=== PATIENT | female | born 1955 | race Caucasian/White ===

== ENCOUNTER 2017-10-10 09:57 | Inpatient (IN) | payer OTHER ==
[~2017-10-10] VITALS: Ht 157.5 cm; Wt 53.1 kg
[~2017-10-10 09:57] MED LIST: ALBU2.5V14 NEB; ASPI-630 PO; CALC600T4 PO; CHOL500016 PO; IBAN3DIS2 IV; TIOT18CA IH
[2017-10-10 13:30] VITALS: BP 170/82
[2017-10-10 13:32] LABS: BASO % 0 % (0-3); EOS # 0.2 x10^3/uL (0.0-0.7); EOS % 2 % (0-3); HEMATOCRIT 39.4 % (36.0-47.0); HEMOGLOBIN 13.4 g/dL (12.0-15.5); LYMPH # 2.5 x10^3/uL (1.0-4.8); LYMPH % 25 % (24-48); MEAN CORPUSCULAR HEMOGLOBIN 32 pg (25-35); MEAN CORPUSCULAR HGB CONC 34 g/dL (31-37); MEAN CORPUSCULAR VOLUME 94 fL (79-100); MONO # 0.9 x10^3/uL (0.0-1.1); MONO % 9 % (0-9); NEUT # 6.2 x10^3uL (1.8-7.7); NEUT % 63 % (31-73); PLATELET COUNT 289 x10^3/uL (140-400); RED BLOOD COUNT 4.19 x10^6/uL (3.50-5.40); RED CELL DISTRIBUTION WIDTH 13.1 % (11.5-14.5); WHITE BLOOD COUNT 9.9 x10^3/uL (4.0-11.0)
[2017-10-10 13:44] LABS: ALBUMIN 3.3 g/dL (3.4-5.0); ALBUMIN/GLOBULIN RATIO 1.1 (1.0-1.7); CALCIUM 8.4 mg/dL (8.5-10.1); CREATININE 0.8 mg/dL (0.6-1.0); GFR 72.2; POTASSIUM 3.6 mmol/L (3.5-5.1); TOTAL BILIRUBIN 0.5 mg/dL (0.2-1.0); TOTAL PROTEIN 6.2 g/dL (6.4-8.2)
[2017-10-10] MEDS ORDERED: IOHEXOL 300 MG/ML 75 ML VIAL. IV ONE ×2 (13:45→17:15)
[2017-10-10] MEDS ORDERED: CALC-495 PO (14:43)
[2017-10-10] MEDS ORDERED: FEXO1TAB31 PO (14:47)
[2017-10-10] MEDS ORDERED: BUPR100T8 PO (14:47)
[2017-10-10] MEDS ORDERED: BUDE10.2 IH (14:47)
[2017-10-10] MEDS ORDERED: AZEL23SP NS (14:47)
[2017-10-10] MEDS ORDERED: FISH12002 PO (14:47)
[2017-10-10] MEDS ORDERED: ASCO500T2 PO (14:47)
[2017-10-10] MEDS: methylPREDNISolone SOD SUCC PF 125 MG/2 ML VIAL. IV SCH ×2 (14:56→22:45)
[2017-10-10] MEDS: IPRATRPIUM/ALBUTEROL 0.5/2.5MG 3 ML NEBU. NEB SCH ×2 (16:00→20:20)
[2017-10-10 16:20] VITALS: BP 163/89
[2017-10-10 16:55] LABS: BGAS PH 7.47 (7.35-7.45)
--- NOTE | 2017-10-10 18:53 | RAD ---
CT chest with contrast: Reason for examination: COPD exacerbation. Helical images were obtained through the chest with intravenous administration of 74 cc of nonionic contrast. Reconstruction was performed in sagittal and coronal planes. Exposure: One or more of the following individualized dose reduction techniques were utilized for this examination: 1. Automated exposure control 2. Adjustment of the mA and/or kV according to patient size 3. Use of iterative reconstruction technique. No abnormality seen at the thyroid gland. The trachea and mainstem bronchi show no intraluminal lesions. No abnormality seen at the esophagus. The thoracic aorta shows no aneurysmal dilatation or dissection. The heart size is normal with no pericardial effusion. There is some calcifications in the subcarinal mediastinum and at the left hilum. No gross pulmonary embolus is evident. The lung chilel are hyperaerated and there are emphysematous changes bilaterally which are predominantly apical. No pulmonary nodules, infiltrates or pleural effusions are seen. No abnormality seen at the visualized portion of the liver. There are splenic granuloma. No abnormalities are seen at the adrenal glands or visualized portion of the left kidney and pancreas. IMPRESSION: Calcifications in the subcarinal mediastinum and at the left hilum. Hyperaerated lung chilel with bilateral emphysematous changes which are predominantly apical. No acute infiltrates, nodules or pleural effusions seen in the chest. Electronically signed by: Payal Mendoza MD (10/10/2017 6:49 PM) [place] [id number]
[2017-10-10 20:44] VITALS: BP 144/83
[2017-10-10] MEDS: DOCUSATE SODIUM 100 MG CAPSULE PO PRN (22:45)
[2017-10-10 23:21] VITALS: BP 143/78
[2017-10-11] MEDS: IPRATRPIUM/ALBUTEROL 0.5/2.5MG 3 ML NEBU. NEB SCH ×4 (05:53→20:16)
[2017-10-11] MEDS: methylPREDNISolone SOD SUCC PF 125 MG/2 ML VIAL. IV SCH (06:00)
[2017-10-11 06:39] VITALS: BP 129/72
[2017-10-11] MEDS ORDERED: NON FORMULARY ITEM (Tiotropium Bromide (Spiriva) 1 CAP) IH SCH (09:00)
[2017-10-11] MEDS ORDERED: CETIRIZINE HCL 10 MG TABLET PO SCH (09:00)
[2017-10-11] MEDS ORDERED: AZELASTINE NS SCH (09:00)
[2017-10-11] MEDS ORDERED: IBANDRONATE SODIUM IV SCH (09:00)
[2017-10-11] MEDS ORDERED: NON FORMULARY ITEM (Budesonide/Formoterol Fumarate (Symbicort 160-4.5 Mcg Inhaler) 2 PUFF) IH SCH (09:00)
[2017-10-11] MEDS ORDERED: DISP SYRIN IV SCH (09:00)
[2017-10-11] MEDS ORDERED: FLUTICASONE NS SCH (09:00)
[2017-10-11] MEDS: PSEUDOEPHEDRINE ER 120 MG TABLET.ER. PO SCH ×2 (10:00→20:19)
[2017-10-11] MEDS: ASPIRIN 81 MG TAB.CHEW PO SCH (10:00)
[2017-10-11] MEDS: ASCORBIC ACID 500 MG TABLET PO SCH (10:00)
[2017-10-11] MEDS: buPROPion SR 100 MG TABLET.SA. PO SCH (10:00)
[2017-10-11] MEDS: DOCUSATE SODIUM 100 MG CAPSULE PO PRN (10:02)
[2017-10-11 10:47] VITALS: BP 154/81
[2017-10-11] MEDS ORDERED: IPRATRPIUM/ALBUTEROL 0.5/2.5MG 3 ML NEBU. NEB SCH (12:00)
[2017-10-11] MEDS: methylPREDNISolone SOD SUCC PF 40 MG/ML VIAL. IV SCH ×2 (14:19→21:51)
[2017-10-11 15:31] VITALS: BP 130/77
[2017-10-11] MEDS: CALCIUM CARB/VIT D3 500/200 TABLET PO SCH (17:04)
[2017-10-11] MEDS: BUDESONIDE 0.5 MG/2 ML NEBU NEB SCH (20:16)
[2017-10-11] MEDS: CETIRIZINE HCL 10 MG TABLET PO SCH (20:18)
[2017-10-11] MEDS: OMEGA-3 FATTY ACIDS/FISH OIL 1,000 MG CAPSULE. PO SCH (20:18)
[2017-10-11] MEDS: LACTOBACILLUS RHAMNOSUS GG 1 CAPSULE. PO SCH (20:18)
[2017-10-11] MEDS: FLUTICASONE 50MCG/NASAL SPRAY 16GM BOTTLE. NS SCH (20:19)
[2017-10-11] MEDS: AZELASTINE NASAL SPRAY 30ML BOTTLE. NS SCH (20:19)
[2017-10-11 20:48] VITALS: BP 128/80
[2017-10-11] MEDS ORDERED: ALBUTEROL SULFATE 2.5 MG/3 ML NEBU. NEB SCH (21:00)
[2017-10-11] MEDS ORDERED: NON FORMULARY ITEM (Albuterol Sulfate (Albuterol Sulfate Conc Neb Soln) 1 VIAL) NEB SCH (21:00)
--- NOTE | 2017-10-11 21:32 | PN ---
DATE: 10/11/2017 SUBJECTIVE: The patient with acute exacerbation of COPD, admitted yesterday. The patient resting fairly comfortably, says she is breathing somewhat better. However, the patient's CT showed bilateral emphysematous changes, no acute infiltrative process noted, but the patient is having difficulty breathing. PHYSICAL EXAMINATION: VITAL SIGNS: Blood pressure 150/80, respiration 20, pulse 90-100, afebrile, oxygen saturation below, she has been under 88-89 percentile. We will continue with IV antibiotic therapy, aggressive pulmonary toilet, Solu-Medrol, make further evaluation on her as indicated otherwise. LUNGS: Diminished throughout. CARDIOVASCULAR: Regular sinus rhythm. ABDOMEN: Soft, nontender. IMPRESSION: Acute exacerbation of chronic obstructive pulmonary disease. Otherwise, the patient is resting fairly comfortably, making fairly good progress, but her lungs were diminished throughout and still shows decreased breath sounds throughout with some rhonchi noted. IMPRESSION: Acute exacerbation of chronic obstructive pulmonary disease, acute bronchitis with acute respiratory failure on top of her acute exacerbation of chronic obstructive pulmonary disease. PLAN: We will continue to monitor the patient accordingly, make further evaluation per those results. JASON CALHOUN MD DR: PATRICIA/lubna JOB#: [id number] / [id number]
[2017-10-12 00:06] VITALS: BP 129/75
[2017-10-12] MEDS: IPRATRPIUM/ALBUTEROL 0.5/2.5MG 3 ML NEBU. NEB SCH ×2 (05:40→09:38)
[2017-10-12] MEDS: methylPREDNISolone SOD SUCC PF 40 MG/ML VIAL. IV SCH (05:42)
[2017-10-12 05:44] VITALS: BP 129/82
[2017-10-12] MEDS: CALCIUM CARB/VIT D3 500/200 TABLET PO SCH (09:07)
[2017-10-12] MEDS: AZELASTINE NASAL SPRAY 30ML BOTTLE. NS SCH (09:07)
[2017-10-12] MEDS: OMEGA-3 FATTY ACIDS/FISH OIL 1,000 MG CAPSULE. PO SCH (09:07)
[2017-10-12] MEDS: LACTOBACILLUS RHAMNOSUS GG 1 CAPSULE. PO SCH (09:07)
[2017-10-12] MEDS: ASCORBIC ACID 500 MG TABLET PO SCH (09:08)
[2017-10-12] MEDS: buPROPion SR 100 MG TABLET.SA. PO SCH (09:08)
[2017-10-12] MEDS: CETIRIZINE HCL 10 MG TABLET PO SCH (09:08)
[2017-10-12] MEDS: PSEUDOEPHEDRINE ER 120 MG TABLET.ER. PO SCH (09:08)
[2017-10-12] MEDS: FLUTICASONE 50MCG/NASAL SPRAY 16GM BOTTLE. NS SCH (09:08)
[2017-10-12] MEDS: ASPIRIN 81 MG TAB.CHEW PO SCH (09:09)
[2017-10-12] MEDS: BUDESONIDE 0.5 MG/2 ML NEBU NEB SCH (09:39)
[2017-10-12] MEDS ORDERED: PRED-220 PO (10:01)
--- NOTE | 2017-10-12 20:25 | DS ---
DATE OF DISCHARGE: 10/12/2017 HOSPITAL COURSE: A 62-year-old female with acute exacerbation of chronic obstructive pulmonary disease with asthma. The patient was admitted to the hospital and placed on aggressive IV steroids, made fairly good progress. A CT scan showed hyperinflated lung chilel, emphysema. The patient made excellent progress during the rest of her hospitalization. There were no complications. PHYSICAL EXAMINATION: VITAL SIGNS: Blood pressure 130/80, respiratory rate 18, pulse 93, afebrile. GENERAL: The patient was alert and oriented x 3. LUNGS: Diminished throughout, poor movement of air. The patient made good progress during the rest of her hospitalization and she was discharged home for followup as an outpatient. IMPRESSION: Acute on top of chronic COPD and acute asthma. The patient will be discharged home and follow up accordingly as an outpatient. See MRAD. Continue breathing treatments, [id number] protein malnutrition. JSAON CALHOUN MD DR: PATRICIA/lubna JOB#: [id number] / [id number]
== END 2017-10-12 11:00 | disposition home or self-care (01) | DRG 189 ==
LOC: 1 SOUTH 12:38
PROVIDERS: ADMIT Family Medicine; ATTEND Family Medicine
DX: J96.00 Acute respiratory failure, unspecified whether with hypoxia or hypercapnia (principal); J44.1 Chronic obstructive pulmonary disease with (acute) exacerbation; J44.0 Chronic obstructive pulmonary disease with (acute) lower respiratory infection; J45.901 Unspecified asthma with (acute) exacerbation; E44.0 Moderate protein-calorie malnutrition; R65.10 Systemic inflammatory response syndrome (SIRS) of non-infectious origin without acute organ dysfunction; J20.9 Acute bronchitis, unspecified; J98.4 Other disorders of lung; Z68.21 Body mass index [BMI] 21.0-21.9, adult
CPT/HCPCS: 36415; 71260; 80053; 82803; 85025; 87040; 94640; J1956; J2920; J2930; J7620; J7626; Q9967

== ENCOUNTER 2020-04-19 14:36 | Inpatient (IN) | payer MEDICARE ==
[~2020-04-19] VITALS: Ht 154.9 cm; Wt 62.2 kg
[~2020-04-19 14:36] MED LIST changes: +ASCO500T4 PO; +AZEL23SP NS; +BUDE10.2 IH; +BUPR100T8 PO; +CALC-495 PO; -CALC600T4 PO; +CALC600T6 PO; +FEXO1TAB31 PO; +FISH12002 PO; +PRED-220 PO
[2020-04-19 16:01] LABS: BASO # 0.1 x10^3/uL (0.0-0.2); BASO % 1 % (0-3); EOS % 0 % (0-3); HEMATOCRIT 43.9 % (36.0-47.0); LYMPH # 1.6 x10^3/uL (1.0-4.8); LYMPH % 14 % (24-48); MEAN CORPUSCULAR HEMOGLOBIN 31 pg (25-35); MEAN CORPUSCULAR HGB CONC 32 g/dL (31-37); MEAN CORPUSCULAR VOLUME 96 fL (79-100); MONO # 0.6 x10^3/uL (0.0-1.1); MONO % 5 % (0-9); NEUT # 9.1 x10^3uL (1.8-7.7); NEUT % 80 % (31-73); PLATELET COUNT 277 x10^3/uL (140-400); RED BLOOD COUNT 4.59 x10^6/uL (3.50-5.40); RED CELL DISTRIBUTION WIDTH 13.9 % (11.5-14.5); WHITE BLOOD COUNT 11.4 x10^3/uL (4.0-11.0)
[2020-04-19 16:13] LABS: ALBUMIN 3.8 g/dL (3.4-5.0); ALBUMIN/GLOBULIN RATIO 1.2 (1.0-1.7); CALCIUM 9.1 mg/dL (8.5-10.1); CREATININE 0.7 mg/dL (0.6-1.0); GFR 83.5; TOTAL BILIRUBIN 0.5 mg/dL (0.2-1.0); TOTAL PROTEIN 7.1 g/dL (6.4-8.2)
[2020-04-19] MEDS ORDERED: ACETAMINOPHEN 500 MG TABLET PO PRN ×2 (17:30→17:45)
[2020-04-19] MEDS ORDERED: ZOLPIDEM 5 MG TABLET. PO PRN (17:45)
[2020-04-19] MEDS ORDERED: LORazepam 0.5 MG TABLET PO PRN (17:45)
[2020-04-19] MEDS ORDERED: ALBUTEROL SULFATE 2.5 MG/3 ML NEBU. NEB PRN (17:45)
[2020-04-19] MEDS: methylPREDNISolone SOD SUCC PF 125 MG/2 ML VIAL. IV SCH ×2 (18:31→22:09)
[2020-04-19 19:20] VITALS: BP 147/79
[2020-04-19] MEDS: IPRATRPIUM/ALBUTEROL 0.5/2.5MG 3 ML NEBU. NEB SCH (19:36)
[2020-04-19] MEDS: AZELASTINE NASAL SPRAY 30ML BOTTLE. NS SCH (20:49)
[2020-04-19] MEDS: OMEGA-3 FATTY ACIDS/FISH OIL 1,000 MG CAPSULE. PO SCH (20:49)
[2020-04-19] MEDS: FLUTICASONE 50MCG/NASAL SPRAY 16GM BOTTLE. NS SCH (20:49)
[2020-04-19] MEDS ORDERED: NON FORMULARY ITEM (Budesonide/Formoterol Fumarate (Symbicort 160-4.5 Mcg Inhaler) 2 PUFF) IH SCH (21:00)
[2020-04-19] MEDS ORDERED: NON FORMULARY ITEM (Albuterol Sulfate (Albuterol Sulfate Conc Neb Soln) 1 VIAL) NEB SCH (21:00)
[2020-04-19] MEDS ORDERED: methylPREDNISolone SOD SUCC PF 125 MG/2 ML VIAL. IV SCH (22:00)
[2020-04-19 22:10] VITALS: BP 129/74
[2020-04-20 05:15] VITALS: BP 126/74
[2020-04-20] MEDS: methylPREDNISolone SOD SUCC PF 125 MG/2 ML VIAL. IV SCH ×2 (05:34→11:33)
[2020-04-20] MEDS: IPRATRPIUM/ALBUTEROL 0.5/2.5MG 3 ML NEBU. NEB SCH (05:42)
[2020-04-20 06:48] LABS: BASO % 0 % (0-3); EOS % 0 % (0-3); HEMATOCRIT 43.2 % (36.0-47.0); LYMPH # 0.7 x10^3/uL (1.0-4.8); LYMPH % 9 % (24-48); MEAN CORPUSCULAR HEMOGLOBIN 31 pg (25-35); MEAN CORPUSCULAR HGB CONC 32 g/dL (31-37); MEAN CORPUSCULAR VOLUME 95 fL (79-100); MONO # 0.1 x10^3/uL (0.0-1.1); MONO % 1 % (0-9); NEUT # 7.3 x10^3uL (1.8-7.7); NEUT % 90 % (31-73); PLATELET COUNT 281 x10^3/uL (140-400); RED BLOOD COUNT 4.52 x10^6/uL (3.50-5.40); RED CELL DISTRIBUTION WIDTH 13.7 % (11.5-14.5); WHITE BLOOD COUNT 8.1 x10^3/uL (4.0-11.0)
[2020-04-20 06:59] LABS: CALCIUM 8.9 mg/dL (8.5-10.1); CREATININE 0.7 mg/dL (0.6-1.0); GFR 83.5; POTASSIUM 4.1 mmol/L (3.5-5.1)
[2020-04-20] MEDS ORDERED: CALCIUM CARB/VIT D3 500/200 TABLET PO SCH (08:00)
[2020-04-20] MEDS: OMEGA-3 FATTY ACIDS/FISH OIL 1,000 MG CAPSULE. PO SCH (08:19)
[2020-04-20] MEDS: FLUTICASONE 50MCG/NASAL SPRAY 16GM BOTTLE. NS SCH (08:20)
[2020-04-20] MEDS: AZELASTINE NASAL SPRAY 30ML BOTTLE. NS SCH (08:21)
[2020-04-20] MEDS ORDERED: FLUT1BLS3 IH (08:30)
[2020-04-20] MEDS ORDERED: predniSONE 10 MG TABLET PO SCH (09:00)
[2020-04-20] MEDS ORDERED: NON FORMULARY ITEM (Tiotropium Bromide (Spiriva) 1 CAP) IH SCH (09:00)
[2020-04-20] MEDS ORDERED: PSEUDOEPHEDRINE ER 120 MG TABLET.ER. PO SCH (09:00)
[2020-04-20] MEDS ORDERED: buPROPion SR 100 MG TABLET.SA. PO SCH (09:00)
[2020-04-20] MEDS ORDERED: ASPIRIN CHEWABLE 81 MG TABLET. PO SCH (09:00)
[2020-04-20] MEDS ORDERED: CETIRIZINE HCL 10 MG TABLET PO SCH (09:00)
[2020-04-20] MEDS ORDERED: MONTELUKAST 10 MG TABLET. PO SCH (09:00)
[2020-04-20] MEDS ORDERED: ASCORBIC ACID 500 MG TABLET PO SCH (09:00)
[2020-04-20] MEDS ORDERED: BUPR100T8 PO (09:50)
[2020-04-20] MEDS ORDERED: MONT10TA80 PO (09:50)
[2020-04-20] MEDS ORDERED: ALBU2.5V8 NEB (09:50)
[2020-04-20] MEDS ORDERED: PRED-220 PO (09:50)
--- NOTE | 2020-04-20 11:29 | RAD ---
PA and lateral chest x-ray compared to CT scan of the chest dated October 10, 2017 for shortness of ai r. FINDINGS: There is hyperinflation consistent with COPD. Pleural parenchymal scarring in the right carine g base is present. There is fullness of the martín on lateral projection, underlying hilar adenopathy o r mass cannot be excluded. There is a calcified 7 mm nodule in the right upper lung which was not def initely seen on the prior CT scan, and there is a 1 cm nodular density in the left upper lung also cl early present on the prior CT scan. Further evaluation with CT scan of the chest is recommended. Hear t size is borderline enlarged. Calcified adenopathy is seen in the subcarinal region. IMPRESSION: 1. Severe COPD, with appropriate mild scarring and/or effusion at the right lung base. 2. Nodular density in the left upper lung which is new from the prior CT scan. This could represent c alcified granuloma or neoplasm, or be spurious. Given this high risk chest x-ray, further evaluation with CT scan of the chest is recommended. 3. Antecedent granulomatous disease with calcified adenopathy in the subcarinal region and a calcifie d right upper lung granuloma. Electronically signed by: Luis Manuel Mejia MD (04/20/2020 11:26 AM) [id number]
--- NOTE | 2020-04-20 12:08 | EKG ---
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
--- NOTE | 2020-04-25 17:18 | DS ---
DATE OF DISCHARGE: 04/20/2020 HOSPITAL COURSE: A 65-year-old female who came in with increased shortness of breath, exacerbation of her COPD, and asthmatic-like symptom that was not relieved with outpatient therapy. The patient was noted to have a density in her left upper lobe and a CT scan was performed as an outpatient. She is going to follow up with Dr. Lang, her monkey keeper, for further evaluation. Otherwise, the patient's oxygen saturation was around 92% on room air. Her CBC was unremarkable and so were her labs except slight elevation of blood sugar, but not significant at this time. IMPRESSION: Acute exacerbation of chronic obstructive pulmonary disease with asthma, left upper lobe abnormality consistent with lung cancer. PLAN: See MRAD and decreased activity, and follow up within the next week for continued testing. JASON CALHOUN MD DR: PATRICIA/lubna JOB#: [id number] / [id number]
[2020-05-17] MEDS ORDERED: IBANDRONATE SODIUM IV SCH (09:00)
[2020-05-17] MEDS ORDERED: DISP SYRIN IV SCH (09:00)
== END 2020-04-20 11:50 | disposition home or self-care (01) | DRG 191 ==
LOC: ICU 14:45
PROVIDERS: ADMIT Family Medicine; ATTEND Family Medicine
DX: J44.1 Chronic obstructive pulmonary disease with (acute) exacerbation (principal); C34.92 Malignant neoplasm of unspecified part of left bronchus or lung; Z79.899 Other long term (current) drug therapy
CPT/HCPCS: 36415; 71046; 80048; 80053; 83605; 85025; 85379; 93005; 94640; J2930